=== PATIENT | male | born 1980 | race Caucasian/White ===

== ENCOUNTER 2024-01-18 08:59 | Outpatient (AMB) | payer MEDICARE, MEDICAID, SELFPAY ==
--- NOTE | 2024-01-18 09:02 | A.OFFPC_ITS ---
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 Intake Note: new patient, muscle pain, flat feet, back pain, lyme disease, on and off tingling and numbing sensation hands hands and legs Chief Commercial Officer Required: No Accompanied by: Self / Same As Patient Allergies acetaminophen [From VICODIN] Allergy (Unknown, Verified 01/18/24 09:23) UNKNOWN hydrocodone [From VICODIN] Allergy (Unknown, Verified 01/18/24 09:23) UNKNOWN Penicillins [PCN] Allergy (Unknown, Verified 01/18/24 09:23) UNKNOWN prednisone [PREDNISONE] Allergy (Unknown, Verified 01/18/24 09:23) UNKNOWN Sulfa (Sulfonamide Antibiotics) [SULFA (SULFONAMIDE ANTIBIOTICS)] Allergy (Unknown, Verified 01/18/24 09:23) UNKNOWN percocet Allergy (Uncoded 01/18/24 09:27) Shortness of Breath Medication List - Last Reconciled 01/18/24 by Ruchi Justice MD brimonidine 0.2% drps ophthalmic (eye) dorzolamide-timolol 22.3-6.8 mg/mL ophthalmic (eye) ketorolac 0.5% drps ophthalmic (eye) latanoprost 0.005% drps ophthalmic (eye) Tobacco use date assessed: 01/18/24 Dental Screening Dental Screen Date: 01/18/24 Did you have a dental visit in the last 12 months?: Yes Did you have a dental problem in the last 6 months where you did not have access to dental care?: No Was dental information given to patient?: Patient has dentist HPI HPI Comments History of Present Illness Details This is a 43-year-old male with glaucoma and bilateral flat feet that comes to establish care. He complains of chest pain that happens at rest and he has pectus excavatum. Had chest x-ray done in September which showed that the lungs were clear. He also complains of bilateral upper and lower limb numbness and tingling that happens constantly. He has had Lyme disease twice and was treated with doxycycline. He does complain of diffuse muscle cramps and pain. He is legally blind from his right eye and follows up with Ophthalmology. [facility] Medical History (Updated 01/18/24 @ 09:30 by Ruchi Justice MD) Lyme disease Surgical History History of head injury History of eye surgery Family History Father Heart attack Mother Breast cancer Brain tumor Social History Housing: Other Alcohol intake: former Patient Tobacco Use Status: Former Tobacco user Tobacco use type: Cigarette e-Cigarette/Vaping Use: Never Used Second Hand Smoke Exposure: No service: No Current occupational status: disabled Cognitive needs: No Hearing needs: No Vision needs: Yes Questionnaire PHQ-9 Over the last 2 weeks, how often have you been bothered by any of the following problems? 1. Little interest or pleasure in doing things: not at all 2. Feeling down, depressed, or hopeless: not at all 3. Trouble falling or staying asleep, or sleeping too much: more than half the days 4. Feeling tired or having little energy: not at all 5. Poor appetite or overeating: not at all 6. Feeling bad about yourself - or that you are a failure or have let yourself or your family down: not at all 7. Trouble concentrating on things, such as reading the newspaper or watching television: not at all 8. Moving or speaking so slowly that other people could have noticed. Or the opposite - being so fidgety or restless that you have been moving around a lot more than usual: not at all 9. Thoughts that you would be better off or of hurting yourself in some way: not at all Total score: 2 Depression Screening Interpretation: Negative Depression Screening Done: Yes 73481 - PHQ-9 Billing: Yes Source: Developed by Drs. Nestor Josue, Kathia Bar, Pb Ngo and colleagues, with an educational radha from [employer]. Thrive Questionnaire Date Thrive assessed: 01/18/24 I am a: Patient What is your living situation today?: I have a steady place to live Within the past 12 months, did the food you bought not last and you didn't have the money to get more?: Never true Within the past 12 months, did you worry whether your food would run out before you got money to buy more?: Never true Do you have trouble paying for medicines?: No Do you have trouble getting transportation to medical appointments?: No Do you have trouble paying your heating and electricity bill?: No Do you have trouble taking care of your child, family member or friend?: No Do you have trouble with day-to-day activities such as bathing, preparing meals, shopping, managing finances, etc.?: No Are you currently unemployed and looking for a job?: No Are you interested in more education?: No Please select the resources that you would like help with: None Currently or been in a relationship where the following occur: no concerns reported THRIVE Score: 0 AUDIT C Alcohol Use Questionnaire (AUDIT-C) 1. How often do you have a drink containing alcohol?: Never Total Score: 0 Score Reviewed/Action Taken: No BERYL-7 AMB Questionnaire BERYL-7 Date BERYL - 7 assessed: 01/18/24 Feeling nervous, anxious, or on edge: 0 = Not at all Not being able to stop or control worryin = Not at all Worrying too much about different things: 0 = Not at all Trouble relaxin = Not at all Being so restless that it is hard to sit still: 0 = Not at all Becoming easily annoyed or irritable: 0 = Not at all Feeling afraid as if something awful might happen: 0 = Not at all Total BERYL-7 score (0-4 normal; 5-9 mild; 10-14 moderate; 15-21 severe): 0 Source: Developed by Drs. Nestor Josue, Kathia Bar, Pb Ngo and colleagues, with an educational radha from [employer]. BERYL-7 Assessment Billing BERYL-7 Assessment Tool: BERYL-7 Assessment 89356 Review of Systems Const All systems reviewed & are unremarkable except as noted in HPI and below Eyes Reports loss of vision Card Reports chest pain at rest, Denies chest pain with activity, Denies edema, Denies irregular heart rhythm, Denies claudication, Denies dyspnea, Denies dyspnea on exertion, Denies orthopnea, Denies paroxysmal nocturnal dyspnea and Denies slow heart rate Resp Denies cough, Denies dyspnea and Denies dyspnea on exertion GI Denies abdominal pain, Denies change in bowel habits, Denies excessive flatus, Denies nausea and Denies vomiting Denies urinary hesitancy, Denies urinary incontinence and Denies urinary urgency Musc Reports arthralgias, Reports muscle cramps, Reports numbness and Reports tingling Neuro Reports loss of vision, Reports numbness and Reports tingling Physical exam (Primary Care) Vital Signs: Last Vital Signs BP 116/80 01/18/24 09:04 BMI result Body Mass Index 21.9 Tobacco/Smoking Status: Tobacco use Status Tobacco use date assessed 01/18/24 01/18/24 09:16 Patient Tobacco Use Status Former Tobacco user 01/18/24 09:17 Tobacco use type Cigarette 01/18/24 09:17 e-Cigarette/Vaping Use Never Used 01/18/24 09:17 PHQ-9: PHQ-9 Score PHQ-9: Total score 2 01/18/24 09:16 Depression Screening Interpretation: Negative Thrive Assessment: Date of Thrive Assessment Date Thrive assessed 01/18/24 01/18/24 09:16 Currently or been in a relationship where the following occur: no concerns reported Eyes Alignment and Position: alignment abnormal right Chest Other: Pectus excavatum Resp Effort & Inspection: normal respiratory effort Auscultation: clear to auscultation bilaterally Cardio Jugular venous distension: no JVD Rate: regular rate Rhythm: regular rhythm Heart sounds: S1 normal heart sound present and S2 normal heart sound present Neuro General: no focal motor deficits Extrem General: Yes full ROM Right lower extremity: ankle (ankle monitor) Assessment and Plan Assessment & Plan (1) Chest pain: Code(s): R07.9 - Chest pain, unspecified Plan: EKG ordered. (2) Flat feet, bilateral: Code(s): M21.41 - Flat foot [pes planus] (acquired), right foot; M21.42 - Flat foot [pes planus] (acquired), left foot Plan: Referred to Podiatry. (3) Numbness and tingling: Code(s): R20.0 - Anesthesia of skin; R20.2 - Paresthesia of skin Plan: Nerve conduction study ordered. MRI of the brain ordered. Referred to neurology. (4) Glaucoma: Code(s): H40.9 - Unspecified glaucoma Plan: Follow-up with ophthalmology. Orders: Orders ECG 12 lead EKG Today R07.9 - Chest pain, unspecified NE nerve conduction velocity Today R20.0 - Anesthesia of skin, R20.2 - Paresthesia of skin Lipid Panel Today E78.5 - Hyperlipidemia, unspecified, R07.9 - Chest pain, unspecified Comprehensive [place]. Panel Fast Today R07.9 - Chest pain, unspecified MR brain wo con w neuroquant Today R20.0 - Anesthesia of skin, R20.2 - Paresthesia of skin Thyroid Stimulating Hormone Today R07.9 - Chest pain, unspecified Complete Blood Count Auto Diff Today R07.9 - Chest pain, unspecified Vitamin B12 and Folate Today E53.8 - Deficiency of other specified B group vitamins, R20.0 - Anesthesia of skin, R20.2 - Paresthesia of skin Referrals 2 Podiatry Referral M21.41 - Flat foot [pes planus] (acquired), right foot, M21.42 - Flat foot [pes planus] (acquired), left foot Neurology Referral R20.0 - Anesthesia of skin, R20.2 - Paresthesia of skin Medications: New meloxicam 15 mg PO DAILY 30 days PRN 30 tabs 0RF pain cyclobenzaprine 10 mg PO BEDTIME 10 days PRN 10 tabs 0RF muscle spasm Coding Level of Care Code Est Pt Level 4 (63981) Diagnoses Chest pain R07.9 Flat feet, bilateral M21.41; M21.42 Numbness and tingling R20.0; R20.2 Glaucoma H40.9 Additional Codes BERYL-7 Assessment Billing - BERYL-7 Assessment Tool: BERYL-7 Assessment [id number] ([id number]) Time Spent (min) 22
[2024-01-18 09:04] VITALS: BP 116/80; BMI 21.9
== END 2024-01-18 09:46 | disposition home or self-care (01) ==
PROVIDERS: Visit Provider Internal Medicine
DX: R07.9 Chest pain, unspecified (principal); M21.41 Flat foot [pes planus] (acquired), right foot; M21.42 Flat foot [pes planus] (acquired), left foot; R20.0 Anesthesia of skin; R20.2 Paresthesia of skin; H40.9 Unspecified glaucoma
CPT/HCPCS: 99214

== ENCOUNTER 2024-01-18 09:55 | Outpatient (REF) | payer MEDICARE, SELFPAY ==
--- NOTE | 2024-01-18 10:10 | ECG_ITS ---
Test Reason : CP Blood Pressure : / mmHG Vent. Rate : 043 BPM Atrial Rate : 043 BPM P-R Int : 148 ms QRS Dur : 092 ms QT Int : 434 ms P-R-T Axes : 054 045 043 degrees QTc Int : 366 ms Marked sinus bradycardia Abnormal ECG No previous ECGs available Referred By: Ruchi Justice Electronically Signed By:REJI JEWELL MD
== END 2024-01-18 09:56 | disposition home or self-care (01) ==
LOC: HO.LAB 09:55
PROVIDERS: PCP Internal Medicine; Visit Provider Internal Medicine
DX: R07.9 Chest pain, unspecified (principal)
CPT/HCPCS: 93005

== ENCOUNTER → 2024-01-18 10:10 | Outpatient (BNV) | payer MEDICARE, SELFPAY | PROVIDERS: PCP Internal Medicine; Visit Provider Internal Medicine Cardiovascular Disease | DX: R00.1 Bradycardia, unspecified (principal); R07.9 Chest pain, unspecified | CPT/HCPCS: 93010 ==

== ENCOUNTER 2024-02-01 13:35 | Outpatient (REF) | payer OTHER, SELFPAY ==
[2024-02-01 13:46] LABS: MANUAL DIFF FLAG NO
--- NOTE | 2024-02-01 13:49 | EMG_ITS ---
Chief complaint: Tingling on right hand, milder on left, muscle ache. History of Lyme. Reason for referral: Evaluate for neuropathy Referred by: Dr. Jared Justice Procedure done: Order was not specific for which extremity to test. We will do upper extremities today. Precautions and/or limitations: None The limb temperature was monitored continuously and remained between 32-36 degrees C during the performance of the NCS. Nerve Conduction Studies Anti Sensory Summary Table ?Stim Site NR Onset (ms) Norm Onset (ms) Peak (ms) Norm Peak (ms) O-P Amp (?V) Norm O-P Amp Site1 Site2 Delta-0 (ms) Dist (cm) Seb (m/s) Norm Seb (m/s) Left Median Anti Sensory (2nd Digit) Wrist ? 2.5 3.1 <3.6 48.6 >10 Wrist 2nd Digit 2.5 14.0 56 Right Median Anti Sensory (2nd Digit) Wrist ? 2.6 3.3 <3.6 46.8 >10 Wrist 2nd Digit 2.6 14.0 54 Right Radial Anti Sensory (Thumb) Forearm ? 1.9 2.5 <3.1 25.6 Forearm Thumb 1.9 0.0 Left Ulnar Anti Sensory (5th Digit) Wrist ? 2.5 3.3 <3.7 20.7 >15.0 Wrist 5th Digit 2.5 14.0 56 Right Ulnar Anti Sensory (5th Digit) Wrist ? 2.8 3.3 <3.7 17.5 >15.0 Wrist 5th Digit 2.8 14.0 50 Motor Summary Table ?Stim Site NR Onset (ms) Norm Onset (ms) O-P Amp (mV) Norm O-P Amp iAmp (mV) Amp (1st) (%) Site1 Site2 Delta-0 (ms) Dist (cm) Seb (m/s) Norm Seb (m/s) Left Median Motor (Abd Poll Brev) Wrist ? 3.1 <3.9 9.8 >4.5 11.3 100.0 Elbow Wrist 3.9 22.0 56 >45 Elbow ? 7.0 9.6 10.9 98.0 Right Median Motor (Abd Poll Brev) Wrist ? 3.5 <3.9 12.4 >4.5 15.6 100.0 Elbow Wrist 3.6 20.0 56 >45 Elbow ? 7.1 12.0 15.3 96.8 Left Ulnar Motor (Abd Dig Minimi) Wrist ? 2.9 <3.0 8.4 >5 10.4 100.0 B Elbow Wrist 3.6 20.0 56 >45 B Elbow ? 6.5 8.1 10.2 96.4 A Elbow B Elbow 2.2 10.0 45 >45 A Elbow ? 8.7 8.1 10.2 96.4 Right Ulnar Motor (Abd Dig Minimi) Wrist ? 2.8 <3.0 11.0 >5 14.5 100.0 B Elbow Wrist 3.8 19.0 50 >45 B Elbow ? 6.6 10.0 13.2 90.9 A Elbow B Elbow 2.0 10.0 50 >45 A Elbow ? 8.6 9.9 13.0 90.0 EMG ?Side Muscle Nerve Root Ins Act Fibs Psw Amp Dur Poly Recrt Int Pat Comment Right 1stDorInt Ulnar C8-T1 Nml Nml Nml Nml Nml 0 Nml Complete Right FlexCarRad Median C6-7 Nml Nml Nml Nml Nml 0 Nml Complete Right Biceps Musculocut C5-6 Nml Nml Nml Nml Nml 0 Nml Complete Right Triceps Radial C6-7-8 Nml Nml Nml Nml Nml 0 Nml Complete Right Deltoid Axillary C5-6 Nml Nml Nml Nml Nml 0 Nml Complete Left 1stDorInt Ulnar C8-T1 Nml Nml Nml Nml Nml 0 Nml Complete Left FlexCarRad Median C6-7 Nml Nml Nml Nml Nml 0 Nml Complete Left Biceps Musculocut C5-6 Nml Nml Nml Nml Nml 0 Nml Complete Left Triceps Radial C6-7-8 Nml Nml Nml Nml Nml 0 Nml Complete Left Deltoid Axillary C5-6 Nml Nml Nml Nml Nml 0 Nml Complete FINDINGS: All motor and sensory nerves tested showed normal latencies, amplitudes and conduction velocities. Concentric needle EMG was performed in selected muscles of the bilateral upper extremities. Study did not reveal signs of electric abnormalities as shown in the table below. No myopathic looking units seen. IMPRESSION: 1. This is a normal study. 2. There is no electrodiagnostic evidence for median neuropathy, ulnar neuropathy, brachial plexopathy, or cervical radiculopathy. CLINICAL COMMENT: Please place order for lower extremity testing if needed. Thank you for your kind referral. Arely Mccoy MD, SANJANA Board Certified, [place] Board [employer] and [employer] (ABPMR) Board Certified, [place] Board of Electrodiagnostic Medicine (ABEM) CODIN 31037 x 2 MTDD
[2024-02-01 14:20] LABS: Basophils Absolute Auto 0.1 X10*3/uL (0.0-0.2); Basophils Percent Auto 1.3 % (0-2); Eosinophils Absolute Auto 0.1 X10*3/uL (0.0-0.4); Eosinophils Percent Auto 2.4 % (0-4); Hematocrit 46.3 % (42.0-52.0); Hemoglobin 15.8 g/dl (14.0-18.0); Imm Gran Abs Auto 0.01 X10*3/uL (0.00-0.03); Imm Gran Pct Auto 0.2 % (0.0-0.4); Lymphocytes Absolute Auto 1.5 X10*3/uL (1.2-4.9); Lymphocytes Percent Auto 28.4 % (20-40); Mean Corpuscular HGB Conc 34.1 g/dl (31.0-36.0); Mean Corpuscular Hemoglobin 31.5 pg (27.0-33.0); Mean Corpuscular Volume 92.2 fL (80.0-98.0); Monocytes Absolute Auto 0.4 X10*3/uL (0.1-1.2); Monocytes Percent Auto 6.5 % (2-11); Neutrophils Absolute Auto 3.3 x10*3/uL (2.0-8.3); Neutrophils Percent Auto 61.2 % (45-73); Platelet Count 168 X10*3/uL (160-400); Red Blood Count 5.02 X10*6/uL (4.60-5.80); Red Cell Distribution Width 12.3 % (11.0-16.0); White Blood Count 5.4 X10*3/uL (4.8-10.8)
[2024-02-01 14:34] LABS: Alanine Aminotransferase 50 U/L (0-40); Albumin Level 4.3 g/dL (3.5-5.0); Alkaline Phosphatase 76 U/L (39-117); Anion Gap 10 (12-20); Aspartate Amino Transferase 32 U/L (5-37); Bilirubin Total 0.9 mg/dL (0.0-1.0); Blood Urea Nitrogen 17 mg/dL (9-16); Calcium 9.2 mg/dL (8.4-10.2); Carbon Dioxide 29 mmol/L (22-29); Chloride 104 mmol/L (96-108); Cholesterol 158 mg/dL (<200); Estimated Glomerular Filt Rate > 60; Glucose Fasting 97 mg/dL (60-99); HDL Cholesterol 54 mg/dL (>40); LDL Cholesterol Calculated 92 mg/dL (<100); Potassium 4.2 mmol/L (3.3-5.1); Sodium 139 mmol/L (135-145); Total Protein 6.8 g/dL (6.5-8.0); Triglycerides 63 mg/dL (<150)
[2024-02-01 14:49] LABS: Thyroid Stimulating Hormone 0.71 uIU/mL (0.32-4.0)
[2024-02-01 15:03] LABS: Folate 8.6 ng/mL (> or = 4.0); Vitamin B12 840 pg/mL (200-900)
== END 2024-02-01 13:36 | disposition home or self-care (01) ==
LOC: HO.NEURO 13:35
PROVIDERS: PCP Internal Medicine; Visit Provider Internal Medicine
DX: R20.0 Anesthesia of skin (principal); R20.2 Paresthesia of skin; R07.9 Chest pain, unspecified; E78.5 Hyperlipidemia, unspecified; E53.8 Deficiency of other specified B group vitamins
CPT/HCPCS: 36415; 80053; 80061; 82607; 82746; 84443; 85025; 95886; 95911

== ENCOUNTER → 2024-02-01 13:49 | Outpatient (BNV) | payer OTHER, SELFPAY | PROVIDERS: PCP Internal Medicine; Visit Provider Physical Medicine & Rehabilitation | DX: M79.641 Pain in right hand (principal); M79.642 Pain in left hand; R20.0 Anesthesia of skin | CPT/HCPCS: 95886; 95911 ==

== ENCOUNTER 2024-03-05 08:25 | Outpatient (AMB) | payer OTHER, SELFPAY ==
[2024-03-05 09:06] VITALS: BP 110/80; PULSE 96; TEMP 36.7; O2SAT 100; BMI 21.0
--- NOTE | 2024-03-05 09:06 | MHC.OFFWIV ---
Intake Vital Signs 03/05/24 09:06 Height 5 ft 7 in Weight 134 lb BMI 21.0 BP 110/80 Blood Pressure Location Lt brachial Position Sitting Pulse 96 Pulse Source Pulse Oximeter Temp 98.1 F Temp Source Temporal Artery Scan Pulse Oximetry (%) 100 Oxygen Delivery Method Room Air Intake Visit Reasons: EP ?lyme disease, bilateral leg pain, nausea Intake Note: pt is her today for lyme disease bitateral leg pain nausea started 3 weeks ago Patient Tobacco Use Status: Former Tobacco user Allergies acetaminophen [From VICODIN] Allergy (Unknown, Verified 03/05/24 09:11) UNKNOWN hydrocodone [From VICODIN] Allergy (Unknown, Verified 03/05/24 09:11) UNKNOWN Penicillins [PCN] Allergy (Unknown, Verified 03/05/24 09:11) UNKNOWN prednisone [PREDNISONE] Allergy (Unknown, Verified 03/05/24 09:11) UNKNOWN Sulfa (Sulfonamide Antibiotics) [SULFA (SULFONAMIDE ANTIBIOTICS)] Allergy (Unknown, Verified 03/05/24 09:11) UNKNOWN percocet Allergy (Uncoded 03/05/24 09:11) Shortness of Breath Do you need a note to return to daycare/school/sports/work: No HPI HPI Comments History of Present Illness Details Patient is a 43-year-old male complaining of months of sharp tight bilateral leg pain and heaviness. He states it started when he had Lyme disease a few months ago. He is unsure which month it was but he knows he had a tick bite with a bull's-eye rash and was given doxycycline for a few weeks which he states he took as directed in full. And now he is stating he has had nausea and vomiting for the last 3 days. He can not keep down more than 1 bite of food at a time. He tried drinking some Powerade this morning and immediately vomited. He is feeling very weak. He went to [facility] yesterday, did blood work and then got frustrated and left before he got any results or treatment. He is concerned because he has wearing an ankle bracelet and he needs to be home by a certain time and does not have transportation. I offered to call him an ambulance to bring him to the emergency department. [facility] Medical History (Updated 03/05/24 @ 09:48 by Crissy Regalado PA-C) Lyme disease Surgical History History of head injury History of eye surgery Family History Father Heart attack Mother Breast cancer Brain tumor Social History Housing: Other Alcohol intake: former Patient Tobacco Use Status: Former Tobacco user Tobacco use type: Cigarette e-Cigarette/Vaping Use: Never Used Second Hand Smoke Exposure: No service: No Current occupational status: disabled Cognitive needs: No Hearing needs: No Vision needs: Yes Review of Systems Const All systems reviewed & are unremarkable except as noted in HPI and below Physical Exam Vital Signs: Last Vital Signs Temp 98.1 F 03/05/24 09:06 Pulse 96 03/05/24 09:06 BP 110/80 03/05/24 09:06 Pulse Ox 100 03/05/24 09:06 Oxygen Delivery Method Room Air 03/05/24 09:06 BMI result Body Mass Index 21.0 Const General: in distress, anxious, combative and poor hygiene Nutritional Appearance: thin Orientation/consciousness: patient oriented x3 HEENT Head: Yes normal to inspection General nose exam: Normal external nose present Face and sinus: Yes normal facial exam Resp Effort & Inspection: normal respiratory effort and able to speak in complete sentences Neuro General: patient oriented x3 Extrem Right lower extremity: normal to inspection, full ROM, normal capillary refill and lower leg Details: normal to inspection and no edema; no erythema, no tenderness, no lacerations, no ecchymosis and no unusual warmth Left lower extremity: normal to inspection, full ROM, normal capillary refill and lower leg Details: normal to inspection and no edema; no erythema, no tenderness, no abrasions, no lacerations, no ecchymosis and no unusual warmth Assessment & Plan Assessment & Plan (1) Vomiting: Code(s): R11.10 - Vomiting, unspecified Qualifiers: Nausea presence: with nausea Vomiting type: unspecified Qualified Code(s): R11.2 - Nausea with vomiting, unspecified Plan: As patient is feeling weak and is likely dehydrated after 4 days of vomiting, will send to emergency department for labs, nausea meds and hydration. Did call Dr. Deluca office to see if patient could have follow-up for his leg pain sooner than later. Plan see above Coding Level of Care Code Est Pt Level 3 (67495) Diagnoses Nausea and vomiting, unspecified vomiting type R11.2 Nausea presence: with nausea Vomiting type: unspecified
== END 2024-03-05 09:58 | disposition home or self-care (01) ==
PROVIDERS: PCP Internal Medicine; Visit Provider Physician Assistant
DX: R11.2 Nausea with vomiting, unspecified (principal)
CPT/HCPCS: 99213

== ENCOUNTER 2024-03-05 10:22 | Emergency (ER) | payer OTHER, SELFPAY ==
[2024-03-05 10:32] VITALS: BP 121/78; PULSE 46; RESP 16; TEMP 37.1; O2SAT 100; BMI 21.0
--- NOTE | 2024-03-05 13:16 | ED_ITS ---
HPI - Nausea/Vomiting/Diarrhea General Chief complaint: Weakness Stated complaint: BLE PAIN,N/V,CHIILS X3WKS FROM DR OFFICE PER EMS Time Seen by Provider: 03/05/24 12:56 Source: patient and EMS Mode of arrival: EMS Limitations: no limitations History of Present Illness ED Provider: Glen Doss PA-C HPI Narrative: 43-year-old male with a history of glaucoma, Lyme disease, sinus bradycardia, who presents to the ER from Urgent Care for evaluation of chronic lower extremity pain, back pain for the last few months as well as nausea, vomiting and weakness for the last 4 days. Patient thinks their leg and back pain is from Lyme disease that he had a few months ago and was treated with 3 weeks of abx that he completed. He states the pain starts in his feet and radiates up the back of his legs all the way to his lower back. He denies any bowel or bladder incontinence. No fevers. Patient reports last 4 days he has had nausea, recurrent vomiting and inability to tolerate p.o.. He feels weak. He denies any abdominal pain but just has an upset stomach and no desire to eat. No chest pain or shortness of breath. No diarrhea, last bowel movement was yesterday and was normal. Patient went to [facility] yesterday but ended up leaving because things were done in a timely fashion. MD elicited complaint: nausea and vomiting Onset (ago): day(s) Description of vomiting: food contents Associated nausea: Yes Associated abdominal pain: No Location of pain: none Pain consistency: intermittent Severity: mild Quality: aching Associated symptoms: loss of appetite, malaise and nausea/vomiting Related Data Home Medications ?Medication ?Instructions ?Recorded ?Confirmed brimonidine 0.2 % eye drops drp ophthalmic (eye) 01/18/24 01/18/24 dorzolamide 22.3 mg-timolol 6.8 ophthalmic (eye) 01/18/24 01/18/24 mg/mL eye drops ketorolac 0.5 % eye drops drp ophthalmic (eye) 01/18/24 01/18/24 latanoprost 0.005 % eye drops drp ophthalmic (eye) 01/18/24 01/18/24 Previous Rx's ?Medication ?Instructions ?Recorded cyclobenzaprine 10 mg tablet 10 mg PO BEDTIME PRN muscle spasm 01/18/24 10 days #10 tabs ondansetron 4 mg disintegrating 4 mg PO Q8H PRN nausea and 03/05/24 tablet vomiting #10 tabs Allergies Allergy/AdvReac Type Severity Reaction Status Date / Time acetaminophen [From VICODIN] Allergy Unknown UNKNOWN Verified 03/05/24 10:35 hydrocodone [From VICODIN] Allergy Unknown UNKNOWN Verified 03/05/24 10:35 Penicillins [PCN] Allergy Unknown UNKNOWN Verified 03/05/24 10:35 prednisone [PREDNISONE] Allergy Unknown UNKNOWN Verified 03/05/24 10:35 Sulfa (Sulfonamide Allergy Unknown UNKNOWN Verified 03/05/24 10:35 Antibiotics) [SULFA (SULFONAMIDE ANTIBIOTICS)] percocet Allergy Shortness Uncoded 03/05/24 10:35 of Breath Review of Systems 2 Review of Systems: Yes all other systems are reviewed and are negative Gastrointestinal: Gastrointestinal: Reports nausea PMFSH Past Medical History Medical History (Updated 03/05/24 @ 13:29 by AMANDA Munoz) Lyme disease Surgical History History of head injury History of eye surgery Family History Family History Father Heart attack Mother Breast cancer Brain tumor Social History Social History Housing: Other Alcohol intake: former Patient Tobacco Use Status: Former Tobacco user Tobacco use type: Cigarette e-Cigarette/Vaping Use: Never Used Second Hand Smoke Exposure: No Advance Directives: No Advance Directives Information Provided: No service: No Current occupational status: disabled Cognitive needs: No Hearing needs: No Vision needs: Yes Physical Exam 2 Vital Signs: Vital Signs: Last Vital Signs Temp 98.0 F 03/05/24 14:35 Pulse 53 03/05/24 14:35 Resp 20 03/05/24 14:35 BP 124/74 03/05/24 14:35 Pulse Ox 100 03/05/24 14:35 O2 Del Method Room Air 03/05/24 14:35 BMI result Body Mass Index 21.0 Appearance: Alert. Oriented X3. No acute distress. Head: normocephalic, atraumatic. Eyes: Pupils equal, round and reactive to light. right eye deviated medially. ENT: Pharynx normal. No tonsillar swelling or exudate. Moist mucous membranes Neck: Normal inspection. Neck supple. CVS: Normal heart rate and rhythm. Pulses normal. Pectus excavatum Respiratory: No respiratory distress. Breath sounds normal. Abdomen: Soft and nontender. +BS x4 Skin: Skin warm and dry. Normal skin color. Normal skin turgor. No rashes. Extremities: No lower extremity edema. No joint swelling. Legs with soft, compressible department's, no rashes or soft tissue tenderness. Neuro/psych: Oriented X 3. No motor deficit. No sensory deficit. CN II-XII intact. Normal speech and cognition. Medications Administered Discontinued Medications Generic Name Dose Route Start Last Admin Trade Name Freq PRN Reason Stop Dose Admin Sodium Chloride 1,000 mls @ 999 mls/hr 03/05/24 13:15 03/05/24 13:26 Ns IVCONT 03/05/24 14:15 999 mls/hr .Q1H1M KIANNA Administration Ondansetron HCl 4 mg 03/05/24 13:14 03/05/24 13:26 Ondansetron Hcl 4 Mg/2 Ml Vial IVPUSH 03/05/24 13:15 4 mg ONCE ONE Administration Medical Decision Making Medical Decision Making [facility] Narrative: 43-year-old male presents the ER for evaluation of nausea and vomiting for the last 4 days, no associated abdominal pain. No tenderness on examination. He also reports chronic bilateral leg pain and lower back pain. He has no red flag symptoms of low back pain. No trauma. No need for imaging of low back today. His vital signs are stable on arrival. Patient is adamant about leaving the emergency department by 3:00 o'clock. He did allow lab work, IV fluids Zofran today. He is tolerating p.o.. His lab work was revealing for neutropenia, thrombocytopenia. Likely viral etiology. No other major significant metabolic derangements. On reassessment after fluids and meds, patient is feeling better. He wants to leave the ER. No need to keep the patient. He can follow-up his primary care for further evaluation of his chronic pain. Stable for discharge. Differential Diagnosis Differential Diagnoses: The differential diagnosis associated with the presentation includes Gastroenteritis, chronic Lyme, dehydration, electrolyte abnormality, sciatica Lab Data [facility] Lab Attestation statement: I reviewed the patient's lab results. Leukopenia, thrombocytopenia, mild elevation of BUN, no major metabolic derangement 03/05/24 14:05 03/05/24 14:05 Labs: Lab Results 03/05/24 Range/Units 14:05 WBC 2.8 L (4.8-10.8) X10*3/uL RBC 4.86 (4.60-5.80) X10*6/uL Hgb 15.1 (14.0-18.0) g/dl Hct 42.8 (42.0-52.0) % MCV 88.1 (80.0-98.0) fL MCH 31.1 (27.0-33.0) pg MCHC 35.3 (31.0-36.0) g/dl RDW 12.0 (11.0-16.0) % Plt Count 114 L D (160-400) X10*3/uL MPV 10.3 (9.4-12.4) fL Immature Gran % (Auto) 0.4 (0.0-0.4) % Neut % (Auto) 40.5 L (45-73) % Lymph % (Auto) 37.5 (20-40) % [facility] % (Auto) 15.9 H (2-11) % Eos % (Auto) 4.6 H (0-4) % Baso % (Auto) 1.1 (0-2) % Lymph # (Auto) 1.1 L (1.2-4.9) X10*3/uL [facility] # (Auto) 0.5 (0.1-1.2) X10*3/uL Eos # (Auto) 0.1 (0.0-0.4) X10*3/uL Baso # (Auto) 0.0 (0.0-0.2) X10*3/uL Abs Immat Gran (auto) 0.01 (0.00-0.03) X10*3/uL Absolute Neuts (auto) 1.2 L (2.0-8.3) x10*3/uL Absolute Nucleated RBC 0.000 (0.0-0.012) X10*3/uL Nucleated RBC % (auto) 0.0 (0.0-0.2) /100WBC Smear Tech's Comments VERIFIED Sodium 140 (135-145) mmol/L Potassium 3.5 (3.3-5.1) mmol/L Chloride 106 (96-108) mmol/L Carbon Dioxide 27 (22-29) mmol/L Anion Gap 11 L (12-20) BUN 22 H (9-16) mg/dL Creatinine 0.81 (0.5-1.4) mg/dL Estim Creat Clear Calc 100.0 Estimated GFR > 60 Random Glucose 93 (60-115) mg/dL Calcium 8.3 L D (8.4-10.2) mg/dL Magnesium 1.8 (1.6-2.6) mg/dL Total Bilirubin 0.7 (0.0-1.0) mg/dL Direct Bilirubin 0.2 (0.0-0.5) mg/dL AST 26 (5-37) U/L ALT 30 (0-40) U/L Alkaline Phosphatase 62 (39-117) U/L Total Protein 6.1 L (6.5-8.0) g/dL Albumin 3.8 (3.5-5.0) g/dL Lipase 10 (8-78) U/L Tests considered The following testing was considered but not selected: Considered CT scan abdomen but exam is benign Prescription Management I considered prescription management with: Pain Medication Chronic Conditions Patient?s care impacted by: Other (Lyme disease) Critical Care Time Critical Care Time Critical Care Time: No Discharge Plan Discharge Clinical Impression: Nausea and vomiting Qualifiers: Vomiting type: unspecified Qualified Code(s): R11.2 - Nausea with vomiting, unspecified Chronic leg pain Qualifiers: Laterality: bilateral Qualified Code(s): M79.604 - Pain in right leg Patient Disposition: Home, Self-Care Instructions: Acute Nausea and Vomiting (ED), Leg Pain (ED) Additional Instructions: You lab workup today showed a low white blood cell count and platelet count- this is likely due to a viral infection. Treatment is supportive care, symptoms usually resolve on their own in 48-72 hours. Recommend rest and plenty of oral hydration. Stick to a bland diet like soup and toast while you are not feeling well. Take the prescribed medication as needed for nausea. Recommend over the counter Pepto Bismol or Imodium for upset stomach and diarrhea. Follow up with your doctor as needed. If you develop new or worsening symptoms call 911 or come back to the ER for further evaluation. Prescriptions: New ondansetron 4 mg tablet,disintegrating 4 mg PO Q8H PRN (Reason: nausea and vomiting) Qty: 10 0RF No Action latanoprost 0.005 % drops ophthalmic (eye) dorzolamide-timolol 22.3-6.8 mg/mL drops ophthalmic (eye) brimonidine 0.2 % drops ophthalmic (eye) ketorolac 0.5 % drops ophthalmic (eye) cyclobenzaprine 10 mg tablet 10 mg PO BEDTIME PRN (Reason: muscle spasm) 10 Days Qty: 10 0RF Referrals: Ruchi Moncada MD [Primary Care Provider] - Print Language: Georgian
[2024-03-05] MEDS: ondansetron HCL 4 MG/2 ML VIAL IVPUSH (13:26)
[2024-03-05] MEDS: 0.9 % Sodium Chloride 1,000 ML 999 ML IVCONT (13:26)
[2024-03-05 14:19] LABS: Basophils Percent Auto 1.1 % (0-2); Eosinophils Absolute Auto 0.1 X10*3/uL (0.0-0.4); Eosinophils Percent Auto 4.6 % (0-4); Hematocrit 42.8 % (42.0-52.0); Hemoglobin 15.1 g/dl (14.0-18.0); Imm Gran Abs Auto 0.01 X10*3/uL (0.00-0.03); Imm Gran Pct Auto 0.4 % (0.0-0.4); Lymphocytes Absolute Auto 1.1 X10*3/uL (1.2-4.9); Lymphocytes Percent Auto 37.5 % (20-40); MANUAL DIFF FLAG SCAN; Mean Corpuscular HGB Conc 35.3 g/dl (31.0-36.0); Mean Corpuscular Hemoglobin 31.1 pg (27.0-33.0); Mean Corpuscular Volume 88.1 fL (80.0-98.0); Monocytes Absolute Auto 0.5 X10*3/uL (0.1-1.2); Monocytes Percent Auto 15.9 % (2-11); Neutrophils Absolute Auto 1.2 x10*3/uL (2.0-8.3); Neutrophils Percent Auto 40.5 % (45-73); Red Blood Count 4.86 X10*6/uL (4.60-5.80); SCAN SMEAR FLAG 1; White Blood Count 2.8 X10*3/uL (4.8-10.8)
[2024-03-05 14:34] LABS: Alanine Aminotransferase 30 U/L (0-40); Albumin Level 3.8 g/dL (3.5-5.0); Alkaline Phosphatase 62 U/L (39-117); Anion Gap 11 (12-20); Aspartate Amino Transferase 26 U/L (5-37); Bilirubin Direct 0.2 mg/dL (0.0-0.5); Bilirubin Total 0.7 mg/dL (0.0-1.0); Blood Urea Nitrogen 22 mg/dL (9-16); Calcium 8.3 mg/dL (8.4-10.2); Carbon Dioxide 27 mmol/L (22-29); Chloride 106 mmol/L (96-108); Estimated Glomerular Filt Rate > 60; Glucose Random 93 mg/dL (60-115); Lipase 10 U/L (8-78); Magnesium 1.8 mg/dL (1.6-2.6); Potassium 3.5 mmol/L (3.3-5.1); Sodium 140 mmol/L (135-145); Total Protein 6.1 g/dL (6.5-8.0)
[2024-03-05 14:35] VITALS: BP 124/74; PULSE 53; RESP 20; TEMP 36.7; O2SAT 100
[2024-03-05 14:39] LABS: Mean Platelet Volume 10.3 fL (9.4-12.4); Platelet Count 114 X10*3/uL (160-400)
[2024-03-05 14:50] LABS: SLIDE REVIEW VERIFIED
--- NOTE | 2024-03-05 15:04 | PC.NURSE ---
patient removed own IV, refused d/c vitals and refused to sign paperwork. ambulated off of unit with steady gait
== END 2024-03-05 15:05 | disposition home or self-care (01) ==
PROVIDERS: Physician Assistant; Emergency Provider Emergency Medicine; PCP Internal Medicine
DX: M79.604 Pain in right leg (principal); R11.2 Nausea with vomiting, unspecified; R53.81 Other malaise; Z79.899 Other long term (current) drug therapy
CPT/HCPCS: 36415; 80048; 80076; 83690; 83735; 85025; 96374; 99283; 99284; J2405

== ENCOUNTER 2024-03-19 11:55 | Outpatient (AMB) | payer OTHER, SELFPAY ==
--- NOTE | 2024-03-19 12:17 | A.OFFPC_ITS ---
Vital Signs 03/19/24 12:18 Height 5 ft 7 in Weight 136 lb BMI 21.3 BP 120/78 Blood Pressure Location Lt brachial Position Sitting Pulse 62 Pulse Source Pulse Oximeter Pulse Oximetry (%) 98 Oxygen Delivery Method Room Air Intake Visit Reasons: [facility] 03/05 BLE PAIN,N/V,CHIILS X3WKS Script Reader Required: No Accompanied by: Self / Same As Patient Allergies acetaminophen [From VICODIN] Allergy (Unknown, Verified 03/19/24 12:35) UNKNOWN hydrocodone [From VICODIN] Allergy (Unknown, Verified 03/19/24 12:35) UNKNOWN Penicillins [PCN] Allergy (Unknown, Verified 03/19/24 12:35) UNKNOWN prednisone [PREDNISONE] Allergy (Unknown, Verified 03/19/24 12:35) UNKNOWN Sulfa (Sulfonamide Antibiotics) [SULFA (SULFONAMIDE ANTIBIOTICS)] Allergy (Unkno wn, Verified 03/19/24 12:35) UNKNOWN meloxicam Adverse Reaction (Intermediate, Verified 03/19/24 12:42) nausea,vomiting percocet Allergy (Uncoded 03/19/24 12:35) Shortness of Breath Medication List - Last Reconciled 03/19/24 by Ruchi Justice MD brimonidine 0.2% drps ophthalmic (eye) dorzolamide-timolol 22.3-6.8 mg/mL ophthalmic (eye) ketorolac 0.5% drps ophthalmic (eye) latanoprost 0.005% drps ophthalmic (eye) ondansetron 4 mg PO Q8H PRN Tobacco use date assessed: 01/18/24 Dental Screening Dental Screen Date: 01/18/24 HPI HPI Comments History of Present Illness Details This is a 43-year-old male with peripheral arterial disease complaining of pain in feet that has been present for over 6 months. Went to see promotion officer which diagnosed him with flat feet and tendonitis and received a local injection with no relief. He has electronic bracelet in right ankle. Has decreased pulses bilateral most likely due to peripheral arterial disease and I will order an ultrasound arterial duplex. Nausea and vomiting resolved with ondansetron. He had Lyme disease awhile ago and complains of having symptoms of diffuse joint pain after it. No chest pain or shortness on breath. He complains of a stress and as me if there was a medication. I offered counseling or psychiatry referral and he declined it. COUNTS INCLUDE 234 BEDS AT THE [facility] Medical History (Updated 03/19/24 @ 12:54 by Ruchi Justice MD) Lyme disease Surgical History History of head injury History of eye surgery Family History Father Heart attack Mother Breast cancer Brain tumor Social History Housing: Other Alcohol intake: former Patient Tobacco Use Status: Former Tobacco user Tobacco use type: Cigarette e-Cigarette/Vaping Use: Never Used Second Hand Smoke Exposure: No service: No Current occupational status: disabled Cognitive needs: No Hearing needs: No Vision needs: Yes Questionnaire Thrive Questionnaire Date Thrive assessed: 01/18/24 BERYL-7 AMB Questionnaire BERYL-7 Date BERYL - 7 assessed: 01/18/24 Source: Developed by Drs. Nestor Josue, Kathia Bar, Pb Ngo and colleagues, with an educational radha from [employer]. Review of Systems Const All systems reviewed & are unremarkable except as noted in HPI and below Card Denies chest pain at rest, Denies chest pain with activity, Denies edema, Denies irregular heart rhythm, Denies claudication, Denies dyspnea, Denies dyspnea on exertion, Denies orthopnea, Denies paroxysmal nocturnal dyspnea and Denies slow heart rate Resp Denies cough, Denies dyspnea and Denies dyspnea on exertion Physical exam (Primary Care) Vital Signs: Last Vital Signs BP 120/78 03/19/24 12:18 BMI result Body Mass Index 21.3 Tobacco/Smoking Status: Tobacco use Status Tobacco use date assessed 01/18/24 03/19/24 12:20 Patient Tobacco Use Status Former Tobacco user 03/19/24 12:20 Tobacco use type Cigarette 03/19/24 12:20 e-Cigarette/Vaping Use Never Used 03/19/24 12:20 Thrive Assessment: Date of Thrive Assessment Date Thrive assessed 01/18/24 03/19/24 12:20 Resp Effort & Inspection: normal respiratory effort Auscultation: clear to auscultation bilaterally Cardio Jugular venous distension: no JVD Rate: regular rate Rhythm: regular rhythm Heart sounds: S1 normal heart sound present and S2 normal heart sound present Extrem Other: flat feet, right ankle electronic bracelet General: Yes full ROM Right lower extremity: foot Details: vascular exam Details: abnormal capillary refill Left lower extremity: foot Details: vascular exam Details: abnormal capillary refill Assessment and Plan Assessment & Plan (1) Peripheral arterial disease: Code(s): I73.9 - Peripheral vascular disease, unspecified Plan: Ultrasound arterial duplex order (2) Foot pain, bilateral: Code(s): M79.671 - Pain in right foot; M79.672 - Pain in left foot Plan: Referred to Podiatry for another 2nd opinion. Orders: Orders US arterial duplex LE BI Today I73.9 - Peripheral vascular disease, unspecified PT Evaluation and Treatment Today M79.671 - Pain in right foot, M79.672 - Pain in left foot Lyme IgG/IgM w/reflex to WB Today A69.20 - Lyme disease, unspecified, M25.50 - Pain in unspecified joint Referrals Podiatry Referral M21.41 - Flat foot [pes planus] (acquired), right foot, M21.42 - Flat foot [pes planus] (acquired), left foot, M79.671 - Pain in right f oot, M79.672 - Pain in left foot Coding Level of Care Code Est Pt Level 3 (46170) Complex EM visit Add On G2211 Diagnoses Peripheral arterial disease I73.9 Foot pain, bilateral M79.671; M79.672 Time Spent (min) 19
[2024-03-19 12:18] VITALS: BP 120/78; PULSE 62; O2SAT 98; BMI 21.3
== END 2024-03-19 12:55 | disposition home or self-care (01) ==
PROVIDERS: PCP Internal Medicine; Visit Provider Internal Medicine
DX: I73.9 Peripheral vascular disease, unspecified (principal); M79.671 Pain in right foot; M79.672 Pain in left foot
CPT/HCPCS: 99213; G2211